=== PATIENT | male | born 1965 | race African-American/Black ===

== ENCOUNTER 2016-08-05 18:48 | Inpatient (IN) | payer OTHER ==
--- NOTE | ~2016-08-05 | DS ---
Unit #: [id number] #: [id number] Patient: PIOTR DE DIOS [id number] [address] [place], [place] [address] [id number] MR#: [id number] NAME: PIOTR DE DIOS ROOM: 322 Age: 51 Sex: M Admission Date: 08/06/2016 : 1965 Discharge Date: 08/17/2016 Attending Physician: Nagi Bourgeois M.D. Primary Care Physician: Colin Sawant M.D. DISCHARGE SUMMARY DISCHARGE DIAGNOSES 1. Nephrotic syndrome. 2. Left ventricular ejection fraction 55%, mild to moderate MR per echo 08/06/2016. 3. Acute on chronic kidney disease with new hemodialysis for severe pulmonary arterial hypertension (RVSP 63 mmHg). 4. Coronary artery disease status post stent to the LAD and left circumflex in 2010. 5. Anemia. 6. Urinary tract infection/BPH. 7. Status post AV fistula and right IJ dialysis catheter insertion. DISCHARGE MEDICATIONS 1. Flomax 4 mg p.o. b.i.d. 2. Gabapentin 300 mg t.i.d. 3. Starlix 60 mg p.o. t.i.d. with meals. 4. Zetia 10 mg p.o. daily. 5. Tradjenta 5 mg p.o. daily. 6. Crestor 20 mg p.o. at hour of sleep. 7. Levemir insulin 10 units subcutaneous in the a.m. and at our of sleep. 8. Aspirin 81 mg p.o. daily. 9. Vitamin D2 5000 units once weekly. 10. Metoprolol tartrate 25 mg p.o. daily. HOSPITAL COURSE This is a 51-year-old male who presented to the emergency room on 08/05/2016 with lower extremity and abdominal swelling. The abdominal swelling had been ongoing over the course of a year, but had worsened in the last few weeks. He was admitted with congestive heart failure and acute kidney injury. His YUDY inhibitor was stopped. He was given Lasix in the emergency room, which seemed to help. Renal was consulted and they stopped the Lasix and put him on a Bumex drip. A two-dimensional echo Doppler revealed an ejection fraction of 50%-55% with RVSP of 62 mmHg and a small pericardial effusion. Cardiac conley he was felt to be stable. On 08/06/2016 neurology was consulted for episodes of incontinence and urinary retention. He was started on Flomax. He was anemic throughout his stay. Hemoglobin on 08/09/2016 was 7.9. He was diagnosed with a urinary tract infection and started on amoxicillin. Vascular surgery was consulted for dialysis access. On 08/13/2016 he underwent an AV fistula creation and placement of a right IJ dialysis catheter. Endocrine was consulted for insulin management. Dr. Dhillon saw him and stopped his Levemir and started Starlix. He was later restarted on Levemir. He had dialysis on 08/14/2016 and again on Unit #: [id number] #: [id number] Patient: PIOTR DE DIOS 08/16/2016. He tolerated dialysis without any complications. His Zaroxolyn and (1) were stopped per renal. Today the patient is doing well. He has outpatient hemodialysis arranged. His heart rate and blood pressure are stable. He is stable for discharge home today. PHYSICAL EXAMINATION VITALS: Temperature 98.9, heart rate 72, respiratory rate 16, blood pressure 140/71. CHEST: Clear to auscultation without rales, rhonchi or wheezes. HEART: S1 and S2. Regular rate and rhythm. ABDOMEN: Soft with positive bowel sounds auscultated. EXTREMITIES: Pedal pulses palpable. Left upper arm AV fistula with bruit and thrill. No edema. DIAGNOSTIC DATA LABORATORY: Sodium 134, potassium 4.3, chloride 94, BUN 27, creatinine 3.5, glucose 137, hemoglobin 9.3, hematocrit 28.9, white blood cell count 9.4, platelets 312. Hepatitis B screen negative. IMAGING: CT of the abdomen and pelvis on 08/06/2016 showed bilateral pleural effusions with bibasilar consolidations, probably due to atelectasis. Anasarca with a trace amount of dependent free fluid in the pelvis. Edematous appearing left kidney. Grossly normal and opacified GI tract including appendix. Urinary bladder decompressed by Bhat catheter. On 08/11/2016 vein mapping showed positive right upper extremity superficial venous thrombosis of the right basilic vein. Right cephalic vein adequate for use as a hemodialysis access from the proximal arm to distal forearm. Left vein adequate for hemodialysis access proximal arm to distal forearm. Chest x-ray on 08/13/2016 showed stable cardiac enlargement and low lung volumes. No acute disease. CARDIOVASCULAR: Two-dimensional echocardiogram on 08/06/2016 showed mild concentric left ventricular hypertrophy, mildly dilated left atrium, mild to moderate mitral regurgitation, mild tricuspid regurgitation, RVSP 63 and left ventricular ejection fraction 55%. DISCHARGE INSTRUCTIONS 1. The patient will be discharged home today. 2. He will follow up with Dr. Parada on , 10/11/2016 at 2:45. 3. He may continue his home diet. 4. We will have renal address his discharge orders for appropriate Bumex. 5. He is to follow up with (2) on 08/28/2016 at 2:15. 6. He will continue the metoprolol tartrate 5 mg p.o. daily. 7. Prescriptions have been provided for all medications. 8. He will continue dialysis on Saturday, and Saturday as per renal orders. Dictated by... Cynthia Augustin APRN for Jayleen Chavira/[place]ford Unit #: [id number] #: [id number] Patient: PIOTR DE DIOS TD: 08/20/2016 08:58 JOB #: [id number] DISCHARGE SUMMARY Page 1 of 1 X X DISCHARGE SUMMARY
--- NOTE | ~2016-08-05 | CR72 ---
[facility] A Service of [facility] RADIOLOGY TEXT RESULTS PATIENT: PIOTR DE DIOS LOCATION: [facility] 322-01 : [birth year] UNIT #: [id number] AGE: [address]: Nagi Bourgeois MD SEX: M ORDER DR: [id number] [facility] [address]. [place], [place] [address] [id number] MR#: [id number] Acc #: [id number] NAME: PIOTR DE DIOS : 1965 SEX: M STUDY DATE/TIME: 08/05/2016 19:49 UNIT: [facility] ROOM: STUDY DESCRIPTION: CR Chest Single View Portable Attending Physician: Leodan Drummond D.O. Ordering Physician: Leodan Drummond D.O. Primary Care Physician: Coiln Sawant M.D. MEDICAL IMAGING REPORT This report is preliminary unless electronic signature is present EXAM Portable AP view of the chest COMPARISON None. INDICATION 51-year-old male with dyspnea and swelling today. FINDINGS No evidence of pneumothorax. There is cardiomegaly with prominence of the pulmonary vasculature which appears mildly indistinct in both lung bases suggesting interstitial edema. There is asymmetric left basilar opacity representing any combination of atelectasis, edema or possibly pneumonia. Small left pleural effusion cannot be excluded. IMPRESSION Cardiomegaly with findings most consistent with pulmonary interstitial edema. There are asymmetric opacities in the left lung base which may reflect atelectasis, asymmetric edema or less likely pneumonia. There may be a small left pleural effusion. Dictated by... Yony Najera M.D. THIS IS AN ELECTRONICALLY VERIFIED REPORT Yony Najera M.D. at 08/09/2016 8:45 AM Cata TD: 08/06/2016 00:14 JOB #: [id number] [facility] A Service [facility] RADIOLOGY TEXT RESULTS PATIENT: PIOTR DE DIOS LOCATION: [facility] 322- : 61 UNIT #: [id number] AGE: [address]: Nagi Bourgeois MD SEX: M ORDER DR: MEDICAL IMAGING REPORT Page 1 of 1 COPY
--- NOTE | ~2016-08-05 | OR ---
Unit #: [id number] #: [id number] Patient: PIOTR DE DIOS [id number] [address] [place], [place] [address] [id number] I MR#: [id number] NAME: PIOTR DE DIOS. ROOM: [facility] Date of Procedure: 08/13/2016 Admission Date: 08/06/2016 Surgeon: Sergey Harden M.D. : 1965 Attending Physician: Nagi Bourgeois M.D. Primary Care Physician: Colin Sawant M.D. OPERATIVE REPORT DOCKET CLERK Robert Rizo. PREOPERATIVE DIAGNOSIS Chronic renal failure requiring dialysis. POSTOPERATIVE DIAGNOSIS Chronic renal failure requiring dialysis. PROCEDURES PERFORMED 1. Ultrasound-guided cannulation, right internal jugular vein. 2. Placement of right internal jugular vein 27 cm NextStep tunneled dialysis catheter with fluoroscopy. 3. Creation of left brachiocephalic arteriovenous fistula. ANESTHESIA General. COMPLICATIONS None. ESTIMATED BLOOD LOSS 20 mL. INDICATIONS FOR PROCEDURE The patient is a 51-year-old gentleman with end-stage renal disease, needing dialysis. He was recommended tunneled catheter placement as well as creation of a left brachiocephalic fistula based on vein mapping results. He understood the planned procedure including the risks and benefits, and wishes to proceed. DESCRIPTION OF PROCEDURE The patient was taken to the operating room and placed on the operating room table in supine position. Following general anesthesia, the patient's bilateral neck, chest wall, and left arm circumferentially were prepped and draped in the normal standard manner. Using ultrasound, the right internal jugular vein was identified and with the direct ultrasound vision, the vein was cannulated with the access needle, and a starter wire was then passed into the inferior vena cava confirmed on fluoroscopy. A stab incision was created at the wire exit site and the tract was serially dilated. Final sheath dilator was placed. Via the sheath dilator, a 27 cm NextStep tunneled dialysis catheter was inserted with its tip Unit #: [id number] #: [id number] Patient: PIOTR DE DIOS projecting into the SVC atrial junction. The proposed tunnel tract was identified and a stab incision was created at the right chest wall and a curved metal tunneler was then passed. The catheter was brought subcutaneously. The catheter was cut to length and the Y-adapter was applied and secured. Inflow and outflow ports were aspirated and flushed easily and then heparin locked. The catheter was secured to the chest wall with 3-0 nylon suture and the base of the neck incision was closed with interrupted subcuticular 4-0 Monocryl suture as well as a single interrupted 3-0 nylon suture. Upon completion, the wound was washed and Dermabond was applied at the right base of the neck incision and a chlorhexidine and Tegaderm was placed at the catheter exit site. The chest was then covered with a towel. In the left arm, using ultrasound, the cephalic vein was identified and marked in the lower arm as well as proximal forearm. The brachial artery was also identified and marked on the skin with a marker. An incision was created transversely just below the antecubital fossa and taken down through the subcutaneous tissues with cautery. The cephalic vein was then identified and dissected free circumferentially. The cephalic vein appeared to be adequate for creation of a fistula and all side branches were doubly ligated and transected. The vein was fully mobilized and then marked with a marking pen. The brachial artery was then noted medially and was dissected free circumferentially with surrounding tissues and looped with vessel loops proximally and distally. The patient was then given heparin 100 units/kg and allowed to circulate for 3 minutes. The distal cephalic vein was clamped with a right-angle clamp. The vein was then transected and proximal control was made with a bulldog clamp. The distal stump was tied with a 3-0 silk tie. The vein was then cannulated with the angiocatheter connected to heparinized saline and flushed easily and dilation of the vein was good following insufflation of fluid. The brachial artery was then clamped proximally and distally and a longitudinal arteriotomy was created and extended with Menard scissors. The vein was cut to length and beveled and anastomosed to the brachial artery with a 6-0 Prolene suture in a running manner. Upon completion of the anastomosis, all clamps were removed and flow was restored. Easily palpable thrill was noted in the fistula and a palpable radial pulse was noted at the wrist. This was accepted. The heparin was reversed with protamine intravenously. No further bleeding was identified. The wound was closed in two layers with subcutaneous running 3-0 Vicryl suture and 4-0 Monocryl suture for skin. The incision was washed and dressing was applied. The procedure was then terminated. The patient tolerated the procedure well and was taken to the recovery room in stable condition. All needle, sponge, and instrument counts were correct at the end of the case. Dictated by... Jayleen Sousa/brian TD: 08/20/2016 01:28 JOB #: [id number] Unit #: [id number] #: [id number] Patient: PIOTR DE DIOS OPERATIVE REPORT Page 1 of 1 X Sergey Harden MD PROCEDURE OPERATIVE NOTE
--- NOTE | ~2016-08-05 | A ---
[facility] Nutrition Therapy DATE: 08/14/16 Patient: PIOTR DE DIOS Physician: ROSARIO Address: [address] Room/Bed: [address] [place] [address], Zip: [place] [address] Admit Date: 08/06/16 Date of : [birth year] Height: 5 7 Weight: 149 68 NUTRITIONAL ASSESSMENT: REASON: PT SEEN FOR CONSULT RE: RENAL DIET EDUCATION PT IS 51 Y.O. MALE ADMITTED FOR ABD SWELLING HT: 5'7", WT: 150-180# (68-82 KG), BMI: 23.5-28.2 RD PROVIDED WRITTEN AND VERBAL CC+ RENAL DIET EDUCATION. PT PROVIDED LIST OF FOODS TO AVOID/LIMIT AND FOODS TO EAT MORE OFTEN. RD EMPHASIZED IMPORTANCE OF INCLUDING SOURCE OF PROTEIN AT EACH MEAL AND SNACK (CONSISTENT MEAL SCHEDULE) FOR HD NEEDS. RD ALSO EMPHASIZED IMPORTANCE OF WATCHING SALT INTAKE DAILY. PT DEMONSTRATED UNDERSTANDING OF THE TOPIC. PT REPORTED NO DIET QUESTIONS AT THIS TIME. RD TO REMAIN AVAILABLE. Recommendations: 1. ENCOURAGE COMPLIANCE OF CURRENT DIET ORDER-CC+ RENAL DIET 2. RE-CONSULT RD IF FURTHER DIET EDUCATION REQUESTED RD WILL F/U PER PROTOCOL Respectfully, JULIANNA BUNCH MS, RD, LD Food and Nutritional Services [facility] cc: client file
--- NOTE | ~2016-08-05 | CO ---
Unit #: [id number] #: [id number] Patient: PIOTR DE DIOS [id number] [address] [address] [id number] I MR#: [id number] NAME: PIOTR DE DIOS. ROOM: 322 Age: 51 Sex: M Admission Date: 08/06/2016 : 1965 Attending Physician: Nagi Bourgeois M.D. Primary Care Physician: Colin Sawant M.D. CONSULTATION REPORT REASON FOR CONSULT Hypoglycemia and management of diabetes mellitus. HISTORY OF PRESENT ILLNESS This is a 51-year-old male with a history of type 2 diabetes mellitus, coronary artery disease, history of positive stent placement, insulin dependent who has been initially admitted with lower extremity swelling and shortness of air and renal failure. He does have a history of chronic kidney disease, which has progressed, requiring hemodialysis. He has been having recurrent episodes of hypoglycemia. I have been asked to see the patient for further management. MEDICAL HISTORY Please see HPI. PAST SURGICAL HISTORY Cataract. HOME MEDICATIONS Lantus 25 units daily, Crestor 20 mg daily, gabapentin, nateglinide 120 mg t.i.d., Actos 30 mg daily, Zetia, Zestril, Tradjenta 5 mg daily. ALLERGIES No known drug allergies. SOCIAL HISTORY Declines tobacco, alcohol or any illicit drugs. Occasionally drinks alcohol. Lives at home with his girlfriend. FAMILY HISTORY Remarkable for coronary artery disease. REVIEW OF SYSTEMS GENERAL: The patient is feeling tired, but no fever or chills. SKIN: No rashes. GI: No nausea, vomiting, or abdominal pain. PULMONARY: No cough or sputum. CARDIAC: No chest pain or palpitations. NEURO: No deficits. Rest of the 12-point review of systems unremarkable. PHYSICAL EXAMINATION GENERAL: He is lying comfortably in the bed. No acute distress. VITAL SIGNS: Afebrile, blood pressure is 88/55. Unit #: [id number] #: [id number] Patient: PIOTR DE DIOS HEENT: EOMI. Pupils equally reactive to light. NECK: Supple. No thyromegaly noted. CHEST: Good air entry. CVS: Regular rhythm. S1, S2. ABDOMEN: Soft and nontender. Bowel sounds positive. EXTREMITIES: No edema noted. DIAGNOSTIC STUDIES LABORATORY RESULTS: Creatinine is 4.4. A1c is 9.3. ASSESSMENT 1. Type 2 diabetes mellitus, uncontrolled. 2. Recurrent hypoglycemia due to the decreased p.o. intake and worsening of the renal function. 3. Coronary artery disease. PLAN We will discontinue the patient's insulin. The patient has been receiving Levemir in the hospital, change the nateglinide 60 mg with each meal. Continue Tradjenta, Accu-Cheks a.c. and h.s. We will continue to follow the patient's blood sugars closely and adjust insulin as needed. Thanks again for consultation. Dictated by... Jaylene Duarte/brian TD: 08/14/2016 06:18 JOB #: [id number] CONSULTATION REPORT Page 1 of 1 X Jese Dhillon MD X CONSULTATION REPORT
--- NOTE | ~2016-08-05 | A ---
[facility] Nutrition Therapy DATE: 08/16/16 Patient: PIOTR DE DIOS Physician: ROSARIO Address: [address] [place], [place] [address] Room/Bed: [address] [place] [address], Zip: [place] [address] Admit Date: 08/06/16 Date of : [birth year] Height: 5 7 Weight: 158 72 NUTRITIONAL ASSESSMENT: REASON: LOS nutrition assessment 51 yo male admitted for ANNIKA PMH: DM with neuropathy, HTN, CAD, HLD, blindness Anthropometrics: Ht: 67" Wt: 72 kg (standing scale weight today) BMI: 24.9 Weights range from 67.7 kg- 91.4 kg since admission Labs: K+ 5.0 Gluc 142 BUN 46 Creat 4.5 Alb 2.3 Accuchecks 144 GFR 16.1 Meds: Levemir, bumetanide, phenergan, vitamin D, NaCl I/O & Bowel function: 1320/775, last BM 08/15 Skin Integrity: No breakdown noted Edema: BLE- generalized Estimated Nutrition Needs: Increased protein-calorie needs due to HD Diet: Renal/ CC Assessment: Chart reviewed, events noted. Pt admitted for ANNIKA, now being seen for LOS nutrition assessment. RD was consulted to provide renal diet education. RD provided verbal and written renal/ CC diet education on 08/14. RD returned to see patient today, and pt reports that he has consumed 2 meals per day over the last couple days due to HD. Pt has a good appetite, consumes majority of his meals. RD suggested Nepro supplements, and eating snacks when not receiving HD. Pt denied having any questions regarding a renal/ CC diet; however, he did report that his girlfriend was interested in learning more. RD encouraged the pt/ RN to contact RD when girlfriend returns to answer any questions. Pt agreed. Pt is agreeable to Nepro supplements, RD will order. Dx: Inadequate oral intake RT HD, increased nutrient needs AEB pt reportedly consuming two meals over the past couple of days due to HD treatments. Intervention: 1. Renal/ CC diet 2. Nepro BID [facility] Nutrition Therapy DATE: 08/16/16 Patient: PIOTR DE DIOS Physician: ROSARIO Address: [address] [place] [address] Room/Bed: [address] [place] [address], Zip: [place] [address] Admit Date: 08/06/16 Date of : [birth year] Height: 5 7 Weight: 158 72 Monitoring, Evaluation and Goals: 1. Oral intake; tolerate >75% of meals, consume > 2 meals per day 2. Improve labs; glucose, BUN, creat, GFR, electrolytes Recommendations: 1. Continue renal/ CC diet as tolerated. 2. Nepro supplements BID for supplemental nutrition. 3. Follow up with RD at outpatient HD center. Pt is at mild nutritional risk. RD to remain available. Respectfully, JOEY SMITH RD, LD Food and Nutritional Services [facility] cc: client file
--- NOTE | ~2016-08-05 | EKG ---
PATIENT: PIOTR DE DIOS UNIT #: [id number] Ventricular Rate: 85 BPM Atrial Rate: 85 BPM P-R Interval: 162 ms QRS Duration: 80 ms Q-T Interval: 378 ms QTC Calculation(Bezet): 449 ms P [place]: 41 degrees Calculated R [place]: -29 degrees Calculated T [place]: 30 degrees Diagnosis Line: Normal sinus rhythm Diagnosis Line: Low voltage QRS Diagnosis Line: Nonspecific T wave abnormality Diagnosis Line: Abnormal ECG Diagnosis Line: When compared with ECG of 05-AUG-2016 20:57, Diagnosis Line: (unconfirmed) Diagnosis Line: No significant change was found Diagnosis Line: Confirmed by NATACHA ERVIN MD ([id number]) on Diagnosis Line: 08/06/2016 9:57:26 PM INTERPRETING MD: JOIE
--- NOTE | ~2016-08-05 | CO ---
Unit #: [id number] #: [id number] Patient: PIOTR DE DIOS [id number] [address] [place], [place] [address] [id number] I MR#: [id number] NAME: PIOTR DE DIOS ROOM: 322 Age: 51 Sex: M Admission Date: 08/06/2016 : 1965 Attending Physician: Nagi Bourgeois M.D. Primary Care Physician: Colin Sawant M.D. CONSULTATION REPORT REQUESTING PHYSICIAN Dr. Parada. REASON FOR CONSULT Management of renal failure. HISTORY OF PRESENT ILLNESS The patient was seen and examined. The chart was reviewed. This is a 51-year-old male with a past medical history of coronary artery disease, diabetes, hypertension, and diabetic nephropathy who presented with a chief complaint of gradually worsening lower extremity edema for the past few weeks prior to admission. He denied shortness of breath and he states he had on and off lower extremity edema for the past year. He denies chest pain, dizziness, focal weakness, change in vision, dysuria, hematuria. As per patient, he noted that he had on and off episodes of urinary incontinence but never saw a urologist. He was last seen by Dr. Hook last year in December when a renal biopsy was obtained which showed advanced diabetic nephropathy and nephrosclerosis. His serum creatinine then was 1.7 and it was 2.9 on admission. Nephrology consult was obtained for further evaluation and treatment. REVIEW OF SYSTEMS As above, otherwise essentially negative. PAST MEDICAL HISTORY 1. Coronary artery disease with PCI with stent in 2010. 2. Hypertension. 3. Diabetes. 4. Biopsy-proven diabetic nephropathy. 5. Hypertensive atherosclerosis, December 2015. 6. Cataracts. 7. Dyslipidemia. 8. Diabetic neuropathy. 9. Urinary incontinence. 10. Blindness. MEDICATIONS Home medications were reviewed and current medications include: 1. Lantus 25 units subcutaneous b.i.d. 2. Rosuvastatin 20 mg p.o. daily. 3. Gabapentin 300 mg p.o. t.i.d. 4. Nateglinide 120 mg p.o. t.i.d. 5. Ezetimibe 10 mg p.o. daily. 6. Zestril 40 mg p.o. daily. Unit #: [id number] #: [id number] Patient: PIOTR DE DIOS 7. Pioglitazone 30 mg p.o. daily. 8. Tradjenta 5 mg p.o. daily. 9. Vitamin D2 at 50,000 units p.o. weekly. 10. Aspirin 81 mg p.o. daily. ALLERGIES No known drug allergies. FAMILY HISTORY His father had end-stage renal disease, was on hemodialysis. No other history of kidney disease in his family. SOCIAL HISTORY Never smoker. Does not drink alcohol. Does not use illicit drugs. REVIEW OF SYSTEMS As above, otherwise essentially negative. PHYSICAL EXAMINATION VITAL SIGNS: Temperature 98.1, pulse 82, respirations 18, blood pressure 144/88. Weight 180 pounds. GENERAL APPEARANCE: This is a well-developed, middle-aged, -Niuean male sitting in bed in no acute distress. HEENT: Atraumatic, normocephalic. Pupils are reactive to light. Extraocular movements intact. Pharynx pink. No exudate. NECK: Supple. JVP less than 7 cm bilaterally. No carotid bruit. CHEST: Decreased air entry bilaterally with good air movement otherwise and no crackles, no wheezing. CARDIOVASCULAR: Regular rate and rhythm. No rubs. No gallops. ABDOMEN: Soft, nontender. Bowel sounds present in all four quadrants. EXTREMITIES: Plus 3 edema up to the knee bilaterally. Pretibial and ankle edema. No cyanosis. No clubbing. NEUROLOGIC: Alert and oriented x3. Grossly nonfocal. Sensation intact. DIAGNOSTIC STUDIES LABORATORY: Glucose 51, BUN 36, creatinine 3, sodium 144, potassium 4.5, chloride 114, bicarbonate 24, calcium 8.3. Magnesium 1.8. Total protein 6, albumin 2.3, bilirubin 0.3, AST and ALT normal, alkaline phosphatase slightly elevated at 108, lipase 10. CK 81, troponin 0.09, brain natriuretic peptide 340. Vitamin B12 at (1) . WBC 9.1, hemoglobin 8.1, hematocrit 25.3, platelet count 346,000. UA: Yellow, specific gravity 1.016, pH 6, leukocyte esterase negative, nitrite negative, protein +3, blood +1, RBC 2-5, WBC 0-2, bacteria negative, (2) 0-2, hyaline casts 0-2. IMAGING: Chest x-ray showed cardiomegaly, pulmonary interstitial edema, atelectasis, asymmetric edema, less likely pneumonia. ASSESSMENT 1. Acute kidney injury on chronic kidney disease: This is likely cardiorenal syndrome versus rapid progression of advanced diabetic nephropathy, biopsy proven in December 2015. 2. Pulmonary edema. 3. Lower extremity edema. 4. Nephrotic range proteinuria secondary to diabetic nephropathy and hypertensive nephrosclerosis. 5. Coronary artery disease. 6. Heart failure. Unit #: [id number] #: [id number] Patient: PIOTR DE DIOS 7. Diabetes mellitus. 8. Hypertension. 9. Dyslipidemia. PLAN From the renal standpoint, we will start Bumex drip and add metolazone, hold the lisinopril for now. Will attempt to maintain a balance between diuretics and his advanced renal failure. Avoid nephrotoxins, over diuresis. Get a urology consult for his history of urinary incontinence with possible overflow incontinence with neurogenic bladder. Check a postvoid residual. Re-assess his blood pressure after diuretics. Low-salt cardiac diet. Monitor electrolytes including magnesium and repeat as needed. Further management will depend on clinical course. Will check a renal ultrasound too. The above assessment and plan was discussed at length with the patient and family present at the bedside and both voiced understanding and agreed to proceed with the plan as outlined above. They were given the opportunity to ask questions and stated that those were answered to their satisfaction. Will check also vitamin D level, PTH, and phosphorous as he most likely has chronic kidney disease and also iron stores, B12, and folate. If iron stores, B12, and folate are in normal range, then will initiate Epogen for his anemia likely secondary to chronic kidney disease. Thank you very much for allowing me to participate in the care of this patient. Please do not hesitate to call if you have any questions or concerns. Dictated by... Ryley Espinosa M.D. Josi TD: 08/06/2016 14:28 JOB #: [id number] CONSULTATION REPORT Page 1 of 1 X X CONSULTATION REPORT
--- NOTE | ~2016-08-05 | CR72 ---
[facility] A Service of [facility] & [facility] RADIOLOGY TEXT RESULTS PATIENT: PIOTR DE DIOS LOCATION: [facility] 322- : [birth year] UNIT #: [id number] AGE: [address]: Nagi Bourgeois MD SEX: M ORDER DR: [id number] [facility] [address] [facility]. [place], [place] [address] [id number] I MR#: [id number] Acc #: [id number] NAME: PIOTR DE DIOS : 1965 SEX: M STUDY DATE/TIME: 08/13/2016 16:31 UNIT: [address] ROOM: [facility] STUDY DESCRIPTION: CR Chest Single View Portable Attending Physician: Nagi Bourgeois M.D. Ordering Physician: Sergey Harden M.D. Primary Care Physician: Colin Sawant M.D. MEDICAL IMAGING REPORT This report is preliminary unless electronic signature is present EXAM Single view portable chest, 08/13/16 HISTORY Postoperative dialysis catheter today. FINDINGS AP radiograph of the chest is presented. COMPARISON STUDIES 08/05/16 FINDINGS Tunnelled central venous catheter from right internal jugular vein approach. It terminates in superior vena cava. Stable cardiac enlargement. Lung volumes are low. No evidence of acute infectious or inflammatory disease. No pleural effusion. No pneumothorax. No suspicious nodule. Dictated by... Damon Montes M.D. THIS IS AN ELECTRONICALLY VERIFIED REPORT Damon Montes M.D. at 08/14/2016 3:50 PM Neida TD: 08/13/2016 20:55 JOB #: [id number] MEDICAL IMAGING REPORT Page 1 of 1 COPY
--- NOTE | ~2016-08-05 | CO ---
Unit #: [id number] #: [id number] Patient: PIOTR DE DIOS [id number] [address] [place], [place] [address] [id number] I MR#: [id number] NAME: PIOTR DE DIOS. ROOM: 322 Age: 51 Sex: M Admission Date: 08/06/2016 : 1965 Attending Physician: Nagi Bourgeois M.D. Primary Care Physician: Colin Sawant M.D. Consultation Date: 08/12/2016 CONSULTATION REPORT REQUESTING PHYSICIAN Dr. Svetlana King. REASON FOR CONSULTATION Acute on chronic renal failure requiring dialysis. HISTORY The patient is a 51-year-old gentleman with a history of diabetes as well as coronary artery disease and hypertension, who has had worsening renal function due to his diabetes. This has been proven with biopsy demonstrating diabetic nephropathy and nephrosclerosis. He has been admitted to the hospital because of significant gradually worsening left lower extremity edema for a few weeks. He denies any significant shortness of breath and has reported to be swollen in the legs for some time off and on for a few years. He reports following up as requested by Dr. Hook in the office but has not yet required dialysis. While in the hospital, he has been noted to have increased elevation of his creatinine near 3 on admission. He reports no fevers or chills and no other sick contacts. He reports tolerating his diet and having normal bowel and bladder function. He does have some urinary incontinence that was being evaluated while in the hospital. He is now being seen by us at the request of Dr. King for initiation of dialysis and access placement. PAST MEDICAL HISTORY 1. Coronary artery disease. 2. Hypertension. 3. Diabetes. 4. Dyslipidemia. PAST SURGICAL HISTORY Coronary arteriogram with stenting. MEDICATIONS 1. Crestor 20 mg daily. 2. Neurontin 300 mg three times daily. 3. Starlix 120 mg three times daily with meals. 4. Zetia 10 mg daily. 5. Tradjenta 5 mg daily before meals. 6. Aspirin 81 mg daily. 7. Zaroxolyn 5 mg twice daily. 8. Midamor 5 mg daily. 9. Flomax 0.4 mg twice daily. 10. Bumex 2 mg IV three times daily. 11. Levemir injection before meals. Unit #: [id number] #: [id number] Patient: PIOTR DE DIOS ALLERGIES No known drug allergies. FAMILY HISTORY Father positive for end-stage renal disease and was on dialysis, also hypertension. SOCIAL HISTORY Nonsmoker. Nondrinker. Does not use illicit drugs. REVIEW OF SYSTEMS Per the HPI. The remainder of a 14-point review of systems is negative per questioning. PHYSICAL EXAMINATION VITAL SIGNS: Temperature is 97.4, heart rate 64, blood pressure 95/51. GENERAL APPEARANCE: The patient is a well-groomed, well-developed individual appearing his stated age in no distress, answering questions appropriately. HEENT: Pupils equal and reactive to light and accommodation. Extraocular movements are intact. Mucous membranes are moist. No intraocular or intramucosal lesions or infections. NECK: Supple. No JVD. No carotid bruits bilaterally. Trachea is midline. Thyroid is midline (1) . HEART: S1, S2. Regular rate and rhythm. No murmurs. LUNGS: Clear to auscultation bilateral. No wheezing or rales throughout. ABDOMEN: Soft, slightly distended but not firm. No rebound or guarding. Positive bowel sounds heard. No abdominal masses or hernias are noted. VASCULAR: Strongly palpable brachial pulses bilateral, faintly palpable and weakly palpable radial pulses bilateral, strongly palpable femoral pulses bilateral, and weakly palpable pedal pulses bilateral. SKIN: No skin lesions, wounds, ulcerations, dermatologic changes throughout. LYMPHATIC: No lymphadenopathy of the cervical or femoral chain. MUSCULOSKELETAL: No soft tissue masses or bony deformities. No limb length or limb circumference abnormalities bilateral. PSYCHIATRIC: Alert and oriented x3. NEUROLOGIC: Cranial nerves II-XII are intact. A 5/5 strength all extremities. Normal sensation all extremities. DIAGNOSTIC STUDIES LABORATORY: Pertinent laboratories: INR is 1.1. Creatinine 4.7, BUN 65, potassium 4.9. White blood cell count 10.9, hemoglobin 8.2. IMAGING: The patient had bilateral upper extremity venous mapping performed on August 11, 2016 reviewed by me personally showing adequate right and left cephalic vein for a creation of a fistula and an adequate left basilic vein for creation of a fistula. IMPRESSION AND PLAN Mr. Piotr De Dios with diabetes, hypertension, and worsening chronic renal failure requiring dialysis. Mr. De Dios was told based on our evaluation that he would require tunneled dialysis catheter placement at the request of nephrology as well as creation of a left arm fistula. He is right handed. His left cephalic vein is appropriate for use at the antecubital fossa and wrist; however, Unit #: [id number] #: [id number] Patient: PIOTR DE DIOS he has weekly and faintly palpable left radial pulse so he has recommended a left brachiocephalic fistula for creation. He understood the planned procedure of both the fistula creation and the tunneled catheter placement. He was told of the planned procedure including the risks, benefits, complications, and alternatives including but not limited to possible bleeding, infection, fistula failure to mature or thrombosis, possible fistula steal syndrome including possibility of arm weakness or numbness. He understood and wishes to proceed. We will plan for surgery on early afternoon on August 13, 2016. He will be NPO after midnight for the procedure and he can remain on his current medications. He was agreeable with the plan as discussed and had the remainder of his questions answered to his satisfaction. Thank you for having us see Mr. De Dios. If you have any questions, do not hesitate to contact me. Dictated by... Sergey Harden M.D. ELLIS/eren TD: 08/12/2016 16:10 JOB #: [id number] CONSULTATION REPORT Page 1 of 1 X Sergey Haredn MD X CONSULTATION REPORT
--- NOTE | ~2016-08-05 | US146 ---
[facility] A Service of [facility] & [facility] RADIOLOGY TEXT RESULTS PATIENT: PIOTR DE DIOS LOCATION: [facility] 322-01 : [birth year] UNIT #: [id number] AGE: [address]: Nagi Bourgeois MD SEX: M ORDER DR: [id number] [facility] [address] [facility]. [place], [place] [address] [id number] I MR#: [id number] Acc #: [id number] NAME: PIOTR DE DIOS : 1965 SEX: M STUDY DATE/TIME: 08/11/2016 10:20 UNIT: A [facility] ROOM: [facility] STUDY DESCRIPTION: US Vein Map Hemodial Access Attending Physician: Nagi Bourgeois M.D. Ordering Physician: Erika De Leon M.D. Primary Care Physician: Colin Sawant M.D. MEDICAL IMAGING REPORT This report is preliminary unless electronic signature is present DATE OF EXAM 08/11/2016 REFERRING PROVIDER Erika De Leon MD REASON FOR EXAM Chronic kidney disease. EXAM Bilateral upper extremity vein mapping. FINDINGS The right and left cephalic vein and basilic veins were evaluated with B-mode imaging and color Doppler imaging. The right and left cephalic veins as well as left basilic veins are widely patent and compressible throughout their course. The right basilic vein is occluded with thrombus throughout its course. The right and left brachial, radial, and ulnar arteries are widely patent with normal appearing waveforms. The right cephalic vein is 4 mm at the proximal, mid, and distal arm. 5 mm at the elbow, proximal forearm and midforearm and 4 mm distal forearm. The left cephalic vein is 4 mm at the proximal arm, mid-arm and distal arm, 8 mm at the elbow, 4 mm proximal forearm, 5 mm at the mid and distal forearm. The left basilic vein is 4 mm at the proximal and mid-arm, 5 mm at the elbow, 3 mm at the elbow and proximal forearm and 2 mm at the mid and distal forearm. IMPRESSION 1. Positive right upper extremity superficial venous thrombosis of the right basilic vein. 2. The right cephalic vein is adequate for use as a hemodialysis access STS. [facility] A Service of [facility] & [facility] RADIOLOGY TEXT RESULTS PATIENT: PIOTR DE DIOS LOCATION: [facility] 322-01 : 61 UNIT #: [id number] AGE: [address]: Naig Bourgeois MD SEX: M ORDER DR: from the proximal arm to the distal forearm. 3. The left cephalic vein is adequate for use as a hemodialysis access from the proximal arm to the distal forearm. 4. The left basilic vein is adequate for use as a hemodialysis access from the proximal arm to the proximal forearm. Dictated by... Sergey Harden M.D. THIS IS AN ELECTRONICALLY VERIFIED REPORT Sergey Harden M.D. at 08/16/2016 2:55 PM ELLIS/adina TD: 08/11/2016 17:13 JOB #: [id number] MEDICAL IMAGING REPORT Page 1 of 1 COPY
--- NOTE | ~2016-08-05 | US84 ---
[id number] [facility] [address] [facility]. [place], [place] [address] [id number] I MR#: [id number] Acc #: [id number] NAME: PIOTR DE DIOS : 1965 SEX: M STUDY DATE/TIME: 08/05/2016 21:48 UNIT: C3A PCU ROOM: 322 STUDY DESCRIPTION: US LE Veins Complete Gopi Stdy Attending Physician: Nagi Bourgeois M.D. Ordering Physician: Leodan Drummond D.O. Primary Care Physician: Colin Sawant M.D. MEDICAL IMAGING REPORT This report is preliminary unless electronic signature is present EXAM Bilateral lower extremity venous ultrasound. HISTORY Bilateral lower extremity swelling for 3 months. TECHNIQUE Venous ultrasound examination of both lower extremities was performed using grayscale, spectral Doppler and color flow Doppler imaging. FINDINGS The examination is negative. There is no evidence of deep venous thrombus from the groin to the lower calf bilaterally. Visualized greater saphenous veins are also patent. IMPRESSION Negative examination. No evidence of lower extremity deep venous thrombosis. Dictated by... Everton Mota M.D. THIS IS AN ELECTRONICALLY VERIFIED REPORT Everton Mota M.D. at 08/06/2016 1:57 PM ADITYA/kirk TD: 08/06/2016 03:51 JOB #: [id number] MEDICAL IMAGING REPORT Page 1 of 1 COPY
--- NOTE | ~2016-08-05 | CT4 ---
[facility] A Service of [facility] & [facility] RADIOLOGY TEXT RESULTS PATIENT: PIOTR DE DIOS LOCATION: [facility] 322- : 61 UNIT #: [id number] AGE: [address]: Nagi Bourgeois MD SEX: M ORDER DR: [id number] [facility] [address] [facility] [place] [facility]. [place], [place] [address] [id number] I MR#: [id number] Acc #: [id number] NAME: PIOTR DE DIOS : 1965 SEX: M STUDY DATE/TIME: 08/06/2016 20:33 UNIT: C3A PCU ROOM: [facility] STUDY DESCRIPTION: CT Abd and Pelv Wo Cont Attending Physician: Nagi Bourgeois M.D. Ordering Physician: Piotr Casas M.D. Primary Care Physician: Colin Sawant M.D. MEDICAL IMAGING REPORT This report is preliminary unless electronic signature is present EXAM CT abdomen and pelvis, 08/06/2016 INDICATION Abdominal pain today with urinary incontinence. Bladder not emptying. Symptoms for about 3 months. TECHNIQUE Axial images were obtained through the abdomen and pelvis without contrast. Multiple format were obtained. No comparison CT. This CT exam was performed with one or more of the following radiation dose reduction techniques: automatic exposure control, adjustment of mA and/or kV according to patient size, and iterative reconstruction. FINDINGS ABDOMEN: There are bilateral small pleural effusions with consolidations in both lower lobes. Findings are probably secondary to atelectasis but pneumonia should be excluded clinically. There is anasarca. Gallbladder is contracted. No renal or ureteral stones are seen and there is no hydronephrosis. The left kidney appears mildly edematous relative to the right but it is otherwise unremarkable. This is entirely nonspecific but could have been due to recent obstruction. This has since been relieved. Correlation with urinalysis results recommended. Unenhanced solid organs are otherwise normal. The unopacified GI tract is normal. There are some shotty retroperitoneal lymph nodes which are nonspecific. PELVIS: There is anasarca. There is trace amount of dependent free fluid in the pelvis. Urinary bladder is decompressed by a Bhat catheter. The unopacified GI tract is grossly normal. There are no lower ureteral stones. [facility] A Service of [facility] RADIOLOGY TEXT RESULTS PATIENT: PIOTR DE DIOS LOCATION: [facility] 322-01 : [birth year] UNIT #: [id number] AGE: [address]: Nagi Bourgeois MD SEX: M ORDER DR: IMPRESSION 1. Bilateral pleural effusions with bibasilar consolidations, probably due to atelectasis, but pneumonia should be excluded clinically. 2. Anasarca with a trace amount of dependent free fluid in the pelvis. 3. Edematous appearing left kidney. Both kidneys are nonobstructed and no stones are seen. This apparent edema of the left kidney is nonspecific but could be secondary to recent obstruction. Correlate clinically. Pyelonephritis could result of this appearance as well. Urinalysis results should be reviewed. 4. Grossly normal unopacified GI tract including the appendix. 5. Urinary bladder decompressed by a Bhat catheter. Dictated by... Piotr Kaiser Jr., M.D. THIS IS AN ELECTRONICALLY VERIFIED REPORT Piotr Kaiser Jr., M.D. at 08/07/2016 8:00 AM MANDI/kirk TD: 08/06/2016 22:42 JOB #: [id number] MEDICAL IMAGING REPORT Page 1 of 1 COPY
--- NOTE | ~2016-08-05 | HP ---
Unit #: [id number] #: [id number] Patient: PIOTR DE DIOS [id number] [address] [place], [place] [address] [id number] MR#: [id number] NAME: PIOTR DE DIOS ROOM: 322 Age: 51 Sex: M Admission Date: 08/06/2016 : 1965 Attending Physician: Nagi Bourgeois M.D. Primary Care Physician: Colin Sawant M.D. HISTORY AND PHYSICAL CHIEF COMPLAINT Lower extremity and abdominal swelling. HISTORY OF PRESENT ILLNESS The patient is a 51-year-old -Irish male with a history of CAD and stent to the LAD and left circumflex in July 2010, hypertension, diabetes mellitus on insulin, hyperlipidemia, who presented to the emergency department on 08/05/2016 with complaints of lower extremity and abdominal swelling. The patient states that the lower extremity swelling has been ongoing over the past year but has become much worse over the past few weeks. He also has a history of renal insufficiency and is followed with Dr. Hook. He states that a biopsy was done last year but is unaware of the results. The patient denies any problems with chest pain. He does mention there has been some dyspnea on exertion but his physical activity is limited due to his lower extremity swelling. He also denies orthopnea or PND. He was treated with 40 mg of IV Lasix in the emergency department and felt that this helped to remove some of the excess volume. PAST CARDIAC TESTING HISTORY Left heart catheterization 07/19/[address] Parada showed a 99% proximal LAD, 70% second diagonal branch of the LAD, 99% mid left circumflex. The patient was transferred to [facility] and treated with a proximal LAD and mid left circumflex drug-eluting stent. OTHER PAST MEDICAL HISTORY 1. Coronary artery disease with history of drug-eluting stent to the proximal LAD and mid left circumflex July 2010. 2. Hypertension. 3. Diabetes mellitus, on insulin. 4. Hyperlipidemia. 5. Diabetic neuropathy. PAST SURGICAL HISTORY Cataracts. HOME MEDICATIONS 1. Lantus 25 units subcu daily. 2. Crestor 20 mg daily. 3. Gabapentin 300 mg three times daily. 4. Nateglinide 120 mg three times daily. 5. Zetia 10 mg daily. 6. Zestril 40 mg daily. 7. Actos 30 mg daily. Unit #: [id number] #: [id number] Patient: PIOTR DE DIOS 8. Tradjenta 5 mg daily. 9. Vitamin D2 50,000 units weekly. 10. Aspirin 81 mg daily. ALLERGIES He has no known drug allergies. SOCIAL HISTORY He does not smoke and has never smoked. He occasionally drinks alcohol. He denies any illicit drug use. He lives at home with his girlfriend. 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 FAMILY HISTORY His mother of cancer at 76. Also had a history of MT, age unknown. REVIEW OF SYSTEMS GENERAL: Denies recent fevers, chills or flu-like symptoms. He feels his weight is generally 165 to 170. SKIN: Denies rashes or hives. He does have some ulcerations on his shins. HEENT: Denies headache. He does have chronic vision loss. Denies hearing loss, epistaxis or dysphagia. PULMONARY: He has occasional mild cough. He has some shortness of breath but, again, is limited physically. Denies wheezing or hemoptysis. CARDIAC: Denies chest pain, palpitations, tachycardia, orthopnea or PND. GI: Denies nausea, vomiting. He does have occasional diarrhea. Denies melena. : Denies hematuria. EXTREMITIES: He has had lower extremity swelling. SPINE: Denies chronic pain. NEURO: Denies any dizziness or syncope or stroke symptoms. DIAGNOSTIC STUDIES LABORATORY: White blood cell 8.6, hemoglobin 9.3, hematocrit 29.0, platelets are 367. Sodium 144, potassium 4.2, chloride 114, CO2 25, BUN 32, creatinine 2.9, glucose 106. CK MB is 12.2. Troponin 0.09 at 0922, 0.06 at 2139, less than 0.05 at 2018. BNP is 340. IMAGING: Chest x-ray shows cardiomegaly with findings most consistent with pulmonary interstitial edema. Bilateral lower extremity venous ultrasound was negative for DVT. CARDIOVASCULAR: EKG shows normal sinus rhythm with nonspecific ST abnormality. PHYSICAL EXAMINATION VITAL SIGNS: Blood pressure 90-179 systolic/79. Heart rate 82 and regular, respirations 18 and regular, temperature 98.8. Weight is 180 pounds. GENERAL: The patient is a well developed, well nourished -Irish male in no acute distress. Alert and oriented x3. SKIN: No rashes or hives. There are some ulcerations on the shins bilaterally. HEENT: Head is normocephalic, atraumatic. There is no xanthelasma. Oral mucosa is pink and moist. NECK: External jugulars are distended. There are no bruits. SPINE: No scoliosis or kyphosis. Unit #: [id number] #: [id number] Patient: PIOTR DE DIOS CARDIAC: Regular rate and rhythm with a 1 to 2 out of 6 systolic murmur at the left lower sternal border and apex. No gallop, rub, or lift appreciated. PULMONARY: Clear to auscultation bilaterally with breath sounds diminished at the bases bilaterally. No wheezes, rhonchi or other accessory muscle use. ABDOMEN: Soft, nontender, nondistended. Positive bowel sounds x4. The abdominal aortic pulsation is not enlarged. EXTREMITIES: 3+ edema bilaterally and ulcerations on the shins bilaterally. NEURO: Alert and oriented x3. ASSESSMENT AND PLAN 1. Fluid overload, possibly secondary to nephrotic syndrome. 2. Severe pulmonary hypertension. 3. Coronary artery disease with history of PCI to the LAD and left circumflex 07/2010. 4. Diabetes mellitus, on insulin. 5. Acute kidney insufficiency. 6. Hypertension. 7. Dyslipidemia. 8. Small pericardial effusion on echo. Mr. De Dios's case was discussed with Dr. Parada who also evaluated the patient. 2D echo Doppler revealed an ejection fraction of 50% to 55%, RVSP of 62 mmHg and a small pericardial effusion. Cardiac conley, the patient is stable. Nephrology has been consulted for further evaluation. Zestril and Actos have been discontinued. Lasix 48 mg IV b.i.d. has been started. Once the patient's fluid excess has been resolved, he will have a walking Lexiscan Cardiolite. Dictated by Rell Butt for Daniel Parada M.D. CMG/adelita TD: 08/06/2016 12:07 JOB #: [id number] HISTORY AND PHYSICAL Page 1 of 1 X X HISTORY AND PHYSICAL
--- NOTE | ~2016-08-05 | EKG ---
PATIENT: PIOTR DE DIOS UNIT #: [id number] Ventricular Rate: 83 BPM Atrial Rate: 83 BPM P-R Interval: 146 ms QRS Duration: 86 ms Q-T Interval: 386 ms QTC Calculation(Bezet): 453 ms P L[place]: 36 degrees Calculated R [place]: -30 degrees Calculated T [place]: 13 degrees Diagnosis Line: Normal sinus rhythm Diagnosis Line: Left axis deviation Diagnosis Line: Nonspecific T wave abnormality Diagnosis Line: Abnormal ECG Diagnosis Line: No previous ECGs available Diagnosis Line: Confirmed by LU GARDNER MD ([id number]) on Diagnosis Line: 08/07/2016 4:31:33 PM INTERPRETING MD: KENDRA BELLA
--- NOTE | ~2016-08-05 | CO ---
Unit #: [id number] #: [id number] Patient: PIOTR DE DIOS [id number] [address] [place], [place] [address] [id number] I MR#: [id number] NAME: PIOTR DE DIOS. ROOM: 322 Age: 51 Sex: M Admission Date: 08/06/2016 : 1965 Attending Physician: Nagi Bourgeois M.D. Primary Care Physician: Colin Sawant M.D. Consultation Date: 08/06/2016 CONSULTATION REPORT REASON FOR CONSULTATION Urinary incontinence. HISTORY This pleasant 51-year-old man was admitted with a two to three week history of increasing peripheral edema, ascending to the genitals. He has also noted urinary incontinence while sleeping at night. He Typically has nocturia two to three times nightly, which has actually lessened He has no frequency or urgency and voids a large amount with a fairly good stream and for example has a liter at bedside. He has no hesitancy or intermittency. Nonetheless, his postvoid residual urine was 741. He has no history of gross hematuria, urinary infection or stone disease. PAST MEDICAL HISTORY Coronary artery disease, chronic kidney disease with markedly increased indices relative to one year ago, hypertension, diabetes, including blindness from retinopathy. PAST SURGICAL HISTORY Coronary stent 2010, renal biopsy, cataracts. MEDICATIONS AT HOME Lantus, simvastatin, gabapentin, nateglinide, ezetimibe, Zestril p.o., glitazone, Trajenta, vitamin D, low dose aspirin. ALLERGIES None known. FAMILY HISTORY Negative for prostate cancer. SOCIAL HISTORY Nonsmoker. Does not drink alcohol. , children, and grandchildren at bedside. REVIEW OF SYSTEMS Blindness, shortness of air, lower extremity genital edema. No chest pain or abdominal pain. No constipation. Other systems reviewed and negative. PHYSICAL EXAMINATION GENERAL: The patient is pleasant, alert, with directed gaze. Generally appearing healthy. Normal skin. HEENT: Unremarkable. Unit #: [id number] #: [id number] Patient: PIOTR DE DIOS LUNGS: Clear. CARDIAC: Regular rate and rhythm regular. ABDOMEN: Soft and nontender. : Phallus normal, penis gland is normal, descended testicles. RECTAL: Digital exam, normal anus and sphincter tone. Stool in vault. Prostate feels 50 gm, asymmetrically large on right in a benign fashion. No nodularity, flexions or tenderness. EXTREMITIES: Marked edema. DIAGNOSTIC STUDIES LABORATORY STUDIES: Include BUN 36, creatinine 3.0, sodium 144, hemoglobin 8.1. Urinalysis - 1+ blood, no nitrates listed, esterase 3-5 rbc's. IMPRESSION 1. Urinary retention subacute and likely chronic. 2. Untreated benign prostatic hypertrophy. 3. 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 4. With markedly progressed renal indices. No evidence of upper tract destruction ruled out at least in this hospitalization. PLAN Will place Bhat catheter and obtain CT scan stone protocol. This ultrasound is not readily available. Will start him on tamsulosin 0.4 mg daily. Check PSA and BMP. Thank you for the consultation. Dictated by... Piotr Casas M.D. KARLA/michelle TD: 08/07/2016 07:30 JOB #: [id number] CC: Ganga Hook M.D. CONSULTATION REPORT Page 1 of 1 X Piotr Casas MD X CONSULTATION REPORT
[~2016-08-05 18:48] MED LIST: BAYER CHEWABLE81 MG PO; DIABETA5 M1 PO; FUROSEMIDE40 MG PO; K-DUR10 MEQ PO; LANTUS100 U/ML SQ; LIPITOR40 MG PO; METFORMIN HCL500 M2 PO; METOLAZONE2.5 MG PO; PHENERGAN PR; PHENERGAN25 MG PO; PRINIVIL40 MG PO; VICODIN PO
[2016-08-05 19:54] LABS: BASOPHIL# 0.1 X10e3 (0-0.3); BASOPHIL% 0.8 % (0-2.5); EOSINOPHIL# 0.2 X10e3 (0-0.7); EOSINOPHIL% 2.8 % (0.0-7.0); HEMOGLOBIN 9.3 gm/dL (13.0-16.0); LYMPHOCYTE# 1.5 X10e3 (1.0-3.5); LYMPHOCYTE% 17.3 % (17.0-45.0); MEAN CELL VOLUME 83.9 FL (83-96); MEAN CORPUSCULAR HGB CONC 32.1 g/dL (30-36); MEAN PLATELET VOLUME 8.2 FL (6.5-11.5); MONOCYTE# 0.6 X10e3 (0-1.0); MONOCYTE% 6.6 % (3.0-12.0); NEUTROPHIL# 6.2 X10e3 (1.5-7.1); NEUTROPHIL% 72.5 % (40-75); PLATELET COUNT 367 X10e3 (140-420); RED BLOOD COUNT 3.46 X10e (3.90-5.60); RED CELL DISTRIBUTION WIDTH 16.1 % (11.0-15.5); WHITE BLOOD COUNT 8.6 X10e3 (4.0-10.5)
[2016-08-05 19:59] LABS: DIFF IND NO
[2016-08-05 20:13] LABS: ALBUMIN SERUM 2.3 g/dL (3.5-5.0); ALKALINE PHOSPHATASE 108 U/L (32-92); ALT (SGPT) 19 U/L (10-40); AST (SGOT) 34 U/L (10-42); BILIRUBIN, DIRECT <0.1 mg/dL (0.0-0.2); BILIRUBIN,INDIRECT 0.2 mg/dL (0.0-0.9); BILIRUBIN,TOTAL 0.3 mg/dL (0.2-2.0); BLOOD UREA NITROGEN 32 mg/dL (9-23); BUN/CREATININE RATIO 11.03; CALCIUM SERUM 8.3 mg/dL (8.4-10.2); CARBON DIOXIDE 25 mmol/L (22-31); CHLORIDE 114 mmol/L (100-111); CREATININE SERUM 2.9 mg/dL (0.6-1.4); GLOM FILT RATE Estimated 27.4 mL/min (>60); GLUCOSE FASTING 106 mg/dL (70-110); POTASSIUM 4.2 mmol/L (3.5-5.1); SODIUM 144 mmol/L (135-145)
[2016-08-05 20:20] LABS: POC - CKMB 12.2 ng/mL (0.0-7.9); POC - TROPONIN <0.05 ng/mL (<=0.05)
[2016-08-05 21:00] LABS: URINE SOURCE CLEAN CATCH
[2016-08-05 21:12] LABS: URINE APPEARANCE CLEAR; URINE BILIRUBIN NEG (NEG); URINE BLOOD 1+ (NEG); URINE COLOR YELLOW; URINE GLUCOSE 100 MG/DL (NEG); URINE KETONE NEG (NEG); URINE LEUKOCYTE ESTERASE NEG (NEG); URINE NITRATE NEG (NEG); URINE PROTEIN 3+ (NEG); URINE SPECIFIC GRAVITY 1.016 (1.003-1.035)
[2016-08-05 21:15] LABS: URINE BACTERIA AUWI NEG (NEGATIVE); URINE SQUAMOUS EPITHELIAL CELL OCC /[HPF]
[2016-08-05 21:24] LABS: CULTURE INDICATED? NO; U HYALINE CASTS AUWI 0-2 /[LPF]
[2016-08-05 21:25] LABS: URINE GRANULAR CAST 0-2 /[HPF]
[2016-08-05] MEDS ORDERED: ROSUVASTATIN CA20 MG PO (21:32)
[2016-08-05] MEDS ORDERED: GABAPENTIN300 M2 PO (21:34)
[2016-08-05] MEDS ORDERED: NATEGLINIDE120 MG PO (21:35)
[2016-08-05] MEDS ORDERED: EZETIMIBE10 MG PO (21:38)
[2016-08-05] MEDS ORDERED: ZESTRIL40 MG PO (21:39)
[2016-08-05] MEDS ORDERED: PIOGLITAZONE30 MG PO (21:40)
[2016-08-05] MEDS ORDERED: TRADJENTA5 MG PO (21:41)
[2016-08-05 21:42] LABS: POC - CKMB 12.4 ng/mL (0.0-7.9); POC - TROPONIN 0.06 ng/mL (<=0.05)
[2016-08-05] MEDS ORDERED: ASPIRIN81 M2 PO (21:43)
[2016-08-05] MEDS ORDERED: VITAMIN D250000 UNIT PO (21:43)
[2016-08-06 08:38] LABS: BASOPHIL# 0.1 X10e3 (0-0.3); BASOPHIL% 0.9 % (0-2.5); EOSINOPHIL# 0.3 X10e3 (0-0.7); EOSINOPHIL% 3.5 % (0.0-7.0); HEMATOCRIT 25.3 % (38.0-50.0); HEMOGLOBIN 8.1 gm/dL (13.0-16.0); LYMPHOCYTE% 22.3 % (17.0-45.0); MEAN CELL VOLUME 84.3 FL (83-96); MEAN CORPUSCULAR HGB CONC 32.1 g/dL (30-36); MEAN PLATELET VOLUME 8.2 FL (6.5-11.5); MONOCYTE# 0.7 X10e3 (0-1.0); MONOCYTE% 7.2 % (3.0-12.0); NEUTROPHIL% 66.1 % (40-75); PLATELET COUNT 346 X10e3 (140-420); RED CELL DISTRIBUTION WIDTH 16.2 % (11.0-15.5); WHITE BLOOD COUNT 9.1 X10e3 (4.0-10.5)
[2016-08-06 08:51] LABS: PARTIAL THROMBOPLASTIN TIME 27.1 SECONDS (23.5-31.3); PROTHROMBIN TIME (PATIENT) 10.7 SECONDS (9.6-11.5)
[2016-08-06 09:08] LABS: CALCIUM SERUM 8.3 mg/dL (8.4-10.2); GLOM FILT RATE Estimated 26.3 mL/min (>60); MAGNESIUM 1.8 mg/dL (1.6-3.0); POTASSIUM 4.5 mmol/L (3.5-5.1)
[2016-08-06 09:10] LABS: DIFF IND NO
[2016-08-06 14:59] LABS: PHOSPHOROUS 4.1 mg/dL (2.5-4.6)
[2016-08-06 15:15] LABS: FOLATE (FOLIC ACID) 10.1 ng/mL (>5.8)
[2016-08-07 05:28] LABS: HEMATOCRIT 23.4 % (38.0-50.0); HEMOGLOBIN 7.6 gm/dL (13.0-16.0); MEAN CELL VOLUME 83.9 FL (83-96); MEAN CORPUSCULAR HEMOGLOBIN 27.2 PG (28-34); MEAN CORPUSCULAR HGB CONC 32.4 g/dL (30-36); MEAN PLATELET VOLUME 8.7 FL (6.5-11.5); RED BLOOD COUNT 2.79 X10e (3.90-5.60); RED CELL DISTRIBUTION WIDTH 15.9 % (11.0-15.5)
[2016-08-07 06:11] LABS: BUN/CREATININE RATIO 12.81; CALCIUM SERUM 8.1 mg/dL (8.4-10.2); CREATININE SERUM 3.2 mg/dL (0.6-1.4); GLOM FILT RATE Estimated 24.3 mL/min (>60); MAGNESIUM 1.7 mg/dL (1.6-3.0); POTASSIUM 4.3 mmol/L (3.5-5.1)
[2016-08-07 12:58] LABS: URINE APPEARANCE CLEAR; URINE BILIRUBIN NEG (NEG); URINE BLOOD 2+ (NEG); URINE COLOR YELLOW; URINE GLUCOSE NEG (NEG); URINE KETONE NEG (NEG); URINE LEUKOCYTE ESTERASE TRACE (NEG); URINE NITRATE NEG (NEG); URINE PH 5.5 (5-8); URINE PROTEIN 2+ (NEG); URINE SPECIFIC GRAVITY 1.008 (1.003-1.035); URINE UROBILINOGEN 0.2 MG/DL (NEG)
[2016-08-07 13:00] LABS: URINE BACTERIA AUWI NEG (NEGATIVE); URINE SQUAMOUS EPITHELIAL CELL NONE SEEN /[HPF]
[2016-08-07 13:34] LABS: CREATININE,RANDOM URINE 27 mg/dL; TOTAL PROTEIN,RANDOM URINE 150 mg/dl (<10)
[2016-08-07 17:51] LABS: CALCIUM (PTHINTACT) 8.3 mg/dL (8.6-10.3)
[2016-08-08 06:14] LABS: HEMATOCRIT 24.3 % (38.0-50.0); HEMOGLOBIN 7.9 gm/dL (13.0-16.0); MEAN CELL VOLUME 83.1 FL (83-96); MEAN CORPUSCULAR HEMOGLOBIN 27.2 PG (28-34); MEAN CORPUSCULAR HGB CONC 32.7 g/dL (30-36); MEAN PLATELET VOLUME 8.5 FL (6.5-11.5); RED BLOOD COUNT 2.92 X10e (3.90-5.60); RED CELL DISTRIBUTION WIDTH 15.8 % (11.0-15.5); WHITE BLOOD COUNT 9.8 X10e3 (4.0-10.5)
[2016-08-08 06:50] LABS: BUN/CREATININE RATIO 13.42; CALCIUM SERUM 8.4 mg/dL (8.4-10.2); CREATININE SERUM 3.5 mg/dL (0.6-1.4); GLOM FILT RATE Estimated 21.8 mL/min (>60); MAGNESIUM 1.7 mg/dL (1.6-3.0); PHOSPHOROUS 4.4 mg/dL (2.5-4.6); POTASSIUM 4.9 mmol/L (3.5-5.1)
[2016-08-09 05:53] LABS: HEMATOCRIT 24.4 % (38.0-50.0); HEMOGLOBIN 7.9 gm/dL (13.0-16.0); MEAN CELL VOLUME 83.3 FL (83-96); MEAN CORPUSCULAR HEMOGLOBIN 26.8 PG (28-34); MEAN CORPUSCULAR HGB CONC 32.1 g/dL (30-36); MEAN PLATELET VOLUME 8.7 FL (6.5-11.5); RED BLOOD COUNT 2.93 X10e (3.90-5.60)
[2016-08-09 06:56] LABS: BUN/CREATININE RATIO 13.07; CALCIUM SERUM 8.5 mg/dL (8.4-10.2); CREATININE SERUM 3.9 mg/dL (0.6-1.4); GLOM FILT RATE Estimated 19.1 mL/min (>60); POTASSIUM 4.4 mmol/L (3.5-5.1)
[2016-08-09 23:42] LABS: URINE APPEARANCE CLEAR; URINE BILIRUBIN NEG (NEG); URINE BLOOD 1+ (NEG); URINE COLOR YELLOW; URINE GLUCOSE NEG (NEG); URINE KETONE NEG (NEG); URINE LEUKOCYTE ESTERASE NEG (NEG); URINE NITRATE NEG (NEG); URINE PH 6.5 (5-8); URINE PROTEIN 3+ (NEG); URINE UROBILINOGEN 0.2 MG/DL (NEG)
[2016-08-09 23:45] LABS: URINE BACTERIA AUWI 2+ (NEGATIVE); URINE SQUAMOUS EPITHELIAL CELL NONE SEEN /[HPF]
[2016-08-10 00:29] LABS: CREATININE,RANDOM URINE 37 mg/dL
[2016-08-10 01:09] LABS: TOTAL PROTEIN,RANDOM URINE 314 mg/dl (<10)
[2016-08-10 02:27] LABS: PSA, FREE 0.31 ng/mL (())
[2016-08-10 06:25] LABS: HEMATOCRIT 23.6 % (38.0-50.0); HEMOGLOBIN 7.7 gm/dL (13.0-16.0); MEAN CELL VOLUME 83.9 FL (83-96); MEAN CORPUSCULAR HEMOGLOBIN 27.2 PG (28-34); MEAN CORPUSCULAR HGB CONC 32.4 g/dL (30-36); MEAN PLATELET VOLUME 8.8 FL (6.5-11.5); RED BLOOD COUNT 2.81 X10e (3.90-5.60); RED CELL DISTRIBUTION WIDTH 16.2 % (11.0-15.5); WHITE BLOOD COUNT 10.3 X10e3 (4.0-10.5)
[2016-08-10 07:04] LABS: BUN/CREATININE RATIO 12.55; CALCIUM SERUM 8.1 mg/dL (8.4-10.2); CREATININE SERUM 4.3 mg/dL (0.6-1.4); POTASSIUM 4.5 mmol/L (3.5-5.1)
[2016-08-10 22:14] LABS: SPE A1GLOB (PNL) 0.4 g/dL (0.2-0.3); SPE ALB (PNL) 2.1 g/dL (3.8-4.8); SPE BETA 1 GLOBULIN 0.3 g/dL (0.4-0.6); SPE BETA 2 GLOBULIN 0.4 g/dL (0.2-0.5); SPE GAMMA (PNL) 0.9 g/dL (0.8-1.7)
[2016-08-11 05:52] LABS: BUN/CREATININE RATIO 13.72; CALCIUM SERUM 7.9 mg/dL (8.4-10.2); CREATININE SERUM 4.3 mg/dL (0.6-1.4); POTASSIUM 5.2 mmol/L (3.5-5.1)
[2016-08-11 10:02] LABS: MYELOPEROXIDASE AB (PNL) <1.0 AI (<1.0); PROTEINASE-3 AB (PNL) <1.0 AI (<1.0)
[2016-08-12 05:51] LABS: HEMATOCRIT 25.9 % (38.0-50.0); HEMOGLOBIN 8.2 gm/dL (13.0-16.0); MEAN CELL VOLUME 85.2 FL (83-96); MEAN CORPUSCULAR HEMOGLOBIN 27.1 PG (28-34); MEAN CORPUSCULAR HGB CONC 31.8 g/dL (30-36); MEAN PLATELET VOLUME 8.5 FL (6.5-11.5); RED BLOOD COUNT 3.04 X10e (3.90-5.60); WHITE BLOOD COUNT 10.9 X10e3 (4.0-10.5)
[2016-08-12 06:21] LABS: BUN/CREATININE RATIO 13.82; CALCIUM SERUM 8.3 mg/dL (8.4-10.2); CREATININE SERUM 4.7 mg/dL (0.6-1.4); GLOM FILT RATE Estimated 15.3 mL/min (>60); POTASSIUM 4.9 mmol/L (3.5-5.1)
[2016-08-13 05:48] LABS: BASOPHIL# 0.1 X10e3 (0-0.3); BASOPHIL% 0.6 % (0-2.5); EOSINOPHIL# 0.3 X10e3 (0-0.7); EOSINOPHIL% 2.7 % (0.0-7.0); HEMATOCRIT 26.8 % (38.0-50.0); HEMOGLOBIN 8.7 gm/dL (13.0-16.0); LYMPHOCYTE# 1.8 X10e3 (1.0-3.5); LYMPHOCYTE% 18.7 % (17.0-45.0); MEAN CELL VOLUME 83.8 FL (83-96); MEAN CORPUSCULAR HEMOGLOBIN 27.1 PG (28-34); MEAN CORPUSCULAR HGB CONC 32.4 g/dL (30-36); MEAN PLATELET VOLUME 8.2 FL (6.5-11.5); MONOCYTE% 10.6 % (3.0-12.0); NEUTROPHIL# 6.5 X10e3 (1.5-7.1); NEUTROPHIL% 67.4 % (40-75); PLATELET COUNT 369 X10e3 (140-420); WHITE BLOOD COUNT 9.7 X10e3 (4.0-10.5)
[2016-08-13 06:03] LABS: DIFF IND NO
[2016-08-13 06:29] LABS: ALBUMIN SERUM 2.5 g/dL (3.5-5.0); BILIRUBIN,TOTAL 0.2 mg/dL (0.2-2.0); CALCIUM SERUM 8.7 mg/dL (8.4-10.2); CREATININE SERUM 4.4 mg/dL (0.6-1.4); GLOM FILT RATE Estimated 16.5 mL/min (>60); POTASSIUM 5.1 mmol/L (3.5-5.1); PROTEIN TOTAL SERUM 6.3 g/dL (6.0-8.3)
[2016-08-14 05:56] LABS: HEMATOCRIT 27.9 % (38.0-50.0); HEMOGLOBIN 8.9 gm/dL (13.0-16.0); MEAN CELL VOLUME 85.1 FL (83-96); MEAN CORPUSCULAR HEMOGLOBIN 27.2 PG (28-34); MEAN PLATELET VOLUME 8.5 FL (6.5-11.5); RED BLOOD COUNT 3.28 X10e (3.90-5.60); RED CELL DISTRIBUTION WIDTH 16.1 % (11.0-15.5); WHITE BLOOD COUNT 8.4 X10e3 (4.0-10.5)
[2016-08-14 06:48] LABS: ALBUMIN SERUM 2.4 g/dL (3.5-5.0); BILIRUBIN,TOTAL 0.3 mg/dL (0.2-2.0); BUN/CREATININE RATIO 12.5; CALCIUM SERUM 8.3 mg/dL (8.4-10.2); CREATININE SERUM 3.6 mg/dL (0.6-1.4); GLOM FILT RATE Estimated 21.1 mL/min (>60); MAGNESIUM 1.9 mg/dL (1.6-3.0); POTASSIUM 5.3 mmol/L (3.5-5.1); PROTEIN TOTAL SERUM 6.3 g/dL (6.0-8.3)
[2016-08-15 05:51] LABS: HEMATOCRIT 28.5 % (38.0-50.0); HEMOGLOBIN 9.2 gm/dL (13.0-16.0); MEAN CELL VOLUME 85.1 FL (83-96); MEAN CORPUSCULAR HEMOGLOBIN 27.5 PG (28-34); MEAN CORPUSCULAR HGB CONC 32.3 g/dL (30-36); MEAN PLATELET VOLUME 8.1 FL (6.5-11.5); RED BLOOD COUNT 3.35 X10e (3.90-5.60); RED CELL DISTRIBUTION WIDTH 16.1 % (11.0-15.5); WHITE BLOOD COUNT 7.7 X10e3 (4.0-10.5)
[2016-08-15 06:58] LABS: ALBUMIN SERUM 2.3 g/dL (3.5-5.0); BILIRUBIN,TOTAL 0.4 mg/dL (0.2-2.0); BUN/CREATININE RATIO 9.06; CALCIUM SERUM 8.5 mg/dL (8.4-10.2); CREATININE SERUM 3.2 mg/dL (0.6-1.4); GLOM FILT RATE Estimated 24.3 mL/min (>60); POTASSIUM 5.1 mmol/L (3.5-5.1); PROTEIN TOTAL SERUM 5.8 g/dL (6.0-8.3)
[2016-08-16 08:38] LABS: HEMATOCRIT 27.7 % (38.0-50.0); MEAN CELL VOLUME 85.2 FL (83-96); MEAN CORPUSCULAR HEMOGLOBIN 27.6 PG (28-34); MEAN CORPUSCULAR HGB CONC 32.4 g/dL (30-36); MEAN PLATELET VOLUME 7.8 FL (6.5-11.5); RED BLOOD COUNT 3.25 X10e (3.90-5.60); RED CELL DISTRIBUTION WIDTH 16.1 % (11.0-15.5); WHITE BLOOD COUNT 8.3 X10e3 (4.0-10.5)
[2016-08-16 09:15] LABS: BUN/CREATININE RATIO 10.22; CALCIUM SERUM 8.8 mg/dL (8.4-10.2); CREATININE SERUM 4.5 mg/dL (0.6-1.4); GLOM FILT RATE Estimated 16.1 mL/min (>60)
[2016-08-17 07:42] LABS: HEMATOCRIT 28.9 % (38.0-50.0); HEMOGLOBIN 9.3 gm/dL (13.0-16.0); MEAN CELL VOLUME 84.7 FL (83-96); MEAN CORPUSCULAR HEMOGLOBIN 27.2 PG (28-34); MEAN PLATELET VOLUME 7.5 FL (6.5-11.5); RED BLOOD COUNT 3.42 X10e (3.90-5.60); RED CELL DISTRIBUTION WIDTH 15.8 % (11.0-15.5); WHITE BLOOD COUNT 9.4 X10e3 (4.0-10.5)
[2016-08-17 08:19] LABS: BUN/CREATININE RATIO 7.71; CALCIUM SERUM 8.3 mg/dL (8.4-10.2); CREATININE SERUM 3.5 mg/dL (0.6-1.4); GLOM FILT RATE Estimated 21.8 mL/min (>60); POTASSIUM 4.3 mmol/L (3.5-5.1)
[2016-08-17 08:50] LABS: HEP B SURFACE AG Nonreactive (Nonreactive); HEPATITIS B SURFACE ANTIBODY <5 mIU/mL (>=10)
[2016-08-17] MEDS ORDERED: METOPROLOL TAR25 MG PO (12:24)
[2016-08-17] MEDS ORDERED: FLOMAX0.4 M1 PO (12:25)
[2016-08-17] MEDS ORDERED: APAP325 M1 PO (12:26)
[2016-08-17] MEDS ORDERED: STARLIX60 MG PO (12:27)
[2016-08-17] MEDS ORDERED: LEVEMIR100 UNITS/ SUBQ ×2 (12:27→12:28)
== END 2016-08-17 14:42 | disposition home or self-care (01) | DRG 674 ==
LOC: CED 18:48 → C3A PCU 08-06 01:12 → CEDOF 08-06 01:12 → C3A PCU 08-06 03:11
PROVIDERS: Emergency Medicine; Internal Medicine Cardiovascular Disease; Internal Medicine Nephrology; Nurse Practitioner; Surgery Vascular Surgery; Urology
PROC: B24BZZZ Ultrasonography of Heart with Aorta (ICD-10-PCS; 2016-08-06)
PROC: 02HV33Z Insertion of Infusion Device into Superior Vena Cava, Percutaneous Approach (ICD-10-PCS; 2016-08-13)
PROC: B518YZA Fluoroscopy of Superior Vena Cava using Other Contrast, Guidance (ICD-10-PCS; 2016-08-13)
PROC: 03180ZD Bypass Left Brachial Artery to Upper Arm Vein, Open Approach (ICD-10-PCS; principal; 2016-08-13 13:00)
PROC: 5A1D60Z (ICD-10-PCS; 2016-08-13 13:00)
DX: E11.21 Type 2 diabetes mellitus with diabetic nephropathy (principal); I13.2 Hypertensive heart and chronic kidney disease with heart failure and with stage 5 chronic kidney disease, or end stage renal disease; N17.9 Acute kidney failure, unspecified; I31.3 Pericardial effusion (noninflammatory); N39.0 Urinary tract infection, site not specified; E11.40 Type 2 diabetes mellitus with diabetic neuropathy, unspecified; E11.22 Type 2 diabetes mellitus with diabetic chronic kidney disease; E11.649 Type 2 diabetes mellitus with hypoglycemia without coma; N18.6 End stage renal disease; I50.9 Heart failure, unspecified; Z99.2 Dependence on renal dialysis; Z79.4 Long term (current) use of insulin; D64.9 Anemia, unspecified; I25.118 Atherosclerotic heart disease of native coronary artery with other forms of angina pectoris; Z95.5 Presence of coronary angioplasty implant and graft; N40.1 Benign prostatic hyperplasia with lower urinary tract symptoms; N39.498 Other specified urinary incontinence; R33.8 Other retention of urine; E78.5 Hyperlipidemia, unspecified; Z79.82 Long term (current) use of aspirin; H54.0 Blindness, both eyes; N32.0 Bladder-neck obstruction; I34.0 Nonrheumatic mitral (valve) insufficiency
CPT/HCPCS: 36415; 71010; 74176; 76000; 77001; 80048; 80053; 80061; 80076; 81003; 82274; 82306; 82310; 82553; 82570; 82607; 82728; 82746; 82747; 82947; 83036; 83540; 83550; 83735; 83880; 83970; 84100; 84153; 84154; 84156; 84165; 84484; 85025; 85027; 85557; 85610; 85730; 86021; 86334; 86704; 86706; 87070; 87077; 87086; 87088; 87186; 87205; 87340; 93005; 93306; 93970; 96374; 99285; C1752; G0103; G0365; J0690; J0885; J1644; J1940; J2550; J2720; J2916; J3010; J3475; Q4081

== ENCOUNTER 2016-09-08 06:55 | Emergency (ER) | payer OTHER ==
[~2016-09-08 06:55] MED LIST changes: +APAP325 M1 PO; +ASPIRIN81 M2 PO; +EZETIMIBE10 MG PO; +FLOMAX0.4 M1 PO; +GABAPENTIN300 M2 PO; +LEVEMIR100 UNITS/ SUBQ; +METOPROLOL TAR25 MG PO; +NATEGLINIDE120 MG PO; +PIOGLITAZONE30 MG PO; +ROSUVASTATIN CA20 MG PO; +STARLIX60 MG PO; +TRADJENTA5 MG PO; +VITAMIN D250000 UNIT PO; +ZESTRIL40 MG PO
== END 2016-09-08 07:55 | disposition home or self-care (01) ==
LOC: CED 06:55
DX: H10.32 Unspecified acute conjunctivitis, left eye (principal); I25.10 Atherosclerotic heart disease of native coronary artery without angina pectoris; I12.0 Hypertensive chronic kidney disease with stage 5 chronic kidney disease or end stage renal disease; N18.6 End stage renal disease; Z79.82 Long term (current) use of aspirin; Z79.899 Other long term (current) drug therapy
CPT/HCPCS: 99283

== ENCOUNTER 2016-09-13 22:41 | Emergency (ER) | payer OTHER | END 2016-09-14 03:45 | disposition home or self-care (01) | LOC: CED 22:41 | DX: H40.212 Acute angle-closure glaucoma, left eye (principal); R51 Headache; E11.40 Type 2 diabetes mellitus with diabetic neuropathy, unspecified; E78.5 Hyperlipidemia, unspecified; I12.0 Hypertensive chronic kidney disease with stage 5 chronic kidney disease or end stage renal disease; N18.6 End stage renal disease; Z79.899 Other long term (current) drug therapy | CPT/HCPCS: 36415; 96374; 96375; 99283; J1120; J2270 ==